=== PATIENT | female | born 1955 | race Caucasian/White ===

== ENCOUNTER → 2018-09-19 | Outpatient (CLI) | payer MEDICARE, OTHER ==
--- NOTE | 2018-09-19 15:49 | Diagnostic Imaging Report ---
INDICATION: Left hip pain. TIME OF EXAMINATION: 11:03 a.m. FINDINGS: An AP view of the pelvis and two views of left hip were obtained. Femoroacetabular alignment is normal bilaterally. Both femoral heads and necks appear intact. No fractures are seen. The rami are intact. The SI joints and symphysis are non-widened. IMPRESSION: No acute bony abnormality is identified. Dictated by: Dictated on workstation # [id number]
== END ==
LOC: RAD 10:12
PROVIDERS: ATTEND Orthopaedic Surgery
DX: M25.552 Pain in left hip (principal)